=== PATIENT | female | born 1965 ===

== ENCOUNTER 2019-09-12 19:20 | Outpatient (CLI) | payer MEDICAID | END 2019-09-12 19:21 | disposition EMS.NT | LOC: EMS 19:20 | PROVIDERS: ATTEND Surgery | DX: R41.0 Disorientation, unspecified (principal) ==

== ENCOUNTER 2020-04-13 08:00 | Outpatient (CLI) | payer MEDICAID ==
[2020-04-13 20:51] LABS: BILIRUBIN,URINE NEGATIVE (NEGATIVE); GLUCOSE, URINE (UA) NEGATIVE (NEGATIVE); KETONES,URINE (UA) NEGATIVE (NEGATIVE); LEUKOCYTE ESTERASE, URINE MODERATE (NEGATIVE); NITRITE,URINE NEGATIVE (NEGATIVE); OCCULT BLOOD,URINE TRACE-LYSE (NEGATIVE); PROTEIN,URINE NEGATIVE (NEGATIVE); UROBILINOGEN,URINE 0.2 (NORMAL) E.U./dL (NORMAL)
[2020-04-13 21:08] LABS: CLARITY,URINE HAZY (CLEAR)
[2020-04-13 21:09] LABS: SQUAMOUS EPITHELIAL CELL,UR FEW Squamous (<= Few)
[2020-04-13 21:10] LABS: BACTERIA,URINE Many /HPF (None Seen)
[2020-04-14 02:50] LABS: CANDIDA GROUP DNA NEGATIVE (NEGATIVE); CANDIDA KRUSEI DNA NEGATIVE (NEGATIVE); TRICHOMONAS VAGINALIS DNA NEGATIVE (NEGATIVE)
== END 2020-04-13 23:59 | disposition home or self-care (01) ==
LOC: LAB.R 08:00
PROVIDERS: ATTEND Emergency Medicine
DX: N76.0 Acute vaginitis (principal); N30.90 Cystitis, unspecified without hematuria
CPT/HCPCS: 81001; 81003; 87077; 87086; 87661; 87801